=== PATIENT | female | born 1935 | race Caucasian/White ===

== ENCOUNTER 2022-01-05 12:18 | Inpatient (IN) | payer MEDICARE ==
[~2022-01-05] VITALS: Ht 160 cm; Wt 57.0 kg
[2022-01-05] MEDS ORDERED: traMADol 50MG tablet PO ONE (15:10)
[2022-01-05 16:38] LABS: BASOPHILS % (AUTO) 0.4 % (0-1); EOSINOPHILS # (AUTO) 0.2 X10'3 (0-0.9); EOSINOPHILS % (AUTO) 2.3 % (0-6); HEMATOCRIT 40.6 % (35.0-45.0); HEMOGLOBIN 13.8 g/dl (12.0-16.0); LYMPHOCYTES # (AUTO) 1.2 X10'3 (1.1-4.8); LYMPHOCYTES % (AUTO) 14.2 % (21-51); MEAN PLATELET VOLUME 8.3 FL (7.4-10.4); MONOCYTES # (AUTO) 0.9 X10'3 (0-0.9); MONOCYTES % (AUTO) 10.6 % (2-12); NEUTROPHILS # (AUTO) 6.2 X10'3 (1.8-7.7); NEUTROPHILS % (AUTO) 72.5 % (42-75); PLATELET COUNT 180 X10'3 (140-440); RED BLOOD COUNT 4.32 X10'6 (4.20-5.60); RED CELL DISTRIBUTION WIDTH 13.5 % (11.5-14.5); WHITE BLOOD COUNT 8.6 X10'3 (4.5-11.0)
[2022-01-05 16:56] LABS: ALANINE AMINOTRANSFERASE 34 U/L (12-78); ALBUMIN 3.5 G/DL (3.4-5.0); ALKALINE PHOSPHATASE 53 IU/L (46-116); ANION GAP 5 (8-16); ASPARTATE AMINO TRANSFERASE 45 U/L (10-37); BILIRUBIN,TOTAL 0.6 MG/DL (0.1-1.0); BLOOD UREA NITROGEN 25 MG/DL (7-18); CHLORIDE 94 MMOL/L (99-107); GLUCOSE 106 MG/DL (70-104); POTASSIUM 3.5 MMOL/L (3.5-5.1); SODIUM 134 MMOL/L (135-145); TOTAL CARBON DIOXIDE 34.9 MMOL/L (24-32); eGFR 52 ML/MIN
[2022-01-05] MEDS ORDERED: magnesium 4gm in 100ml NS 100 ML IV PRN (17:20)
[2022-01-05] MEDS ORDERED: metoclopramide 5 mg/ml inj IV PRN (17:20)
[2022-01-05] MEDS ORDERED: PERFLUTREN PROTEIN-A MICROSPHR (Optison) 0.22 MG/ML 3ML VIAL IV ONE (17:20)
[2022-01-05] MEDS: normal saline 1000ml 1,000 ML IV SCH (17:20)
[2022-01-05] MEDS ORDERED: ondansetron 4mg rapidly disintigrating tab PO PRN (17:20)
[2022-01-05] MEDS ORDERED: HYDROcodone/acetaminophen 5mg/325mg tablet PO PRN (17:20)
[2022-01-05] MEDS ORDERED: acetaminophen 325mg tablet PO PRN ×2 (17:20)
[2022-01-05] MEDS ORDERED: mag hydrox/Alum hydrox/simeth 30ml oral suspension PO PRN (17:20)
[2022-01-05] MEDS ORDERED: HYDROcodone/acetaminophen 10/325mg tab PO PRN (17:20)
[2022-01-05] MEDS ORDERED: morphine 2 MG/ML inj. syringe IV PRN ×2 (17:20)
[2022-01-05] MEDS ORDERED: ondansetron/PF 4mg/2ml inj IV PRN (17:20)
[2022-01-05] MEDS ORDERED: acetaminophen 650mg rectal suppository RC PRN (17:20)
[2022-01-05] MEDS ORDERED: magnesium 2GM in 50ml NS 50 ML IV PRN (17:20)
[2022-01-05] MEDS ORDERED: potassium CL 10mEq/100ml bag 100 ML IV PRN (17:20)
[2022-01-05] MEDS ORDERED: bisacodyl 10mg suppository rectal RC PRN (17:20)
[2022-01-05] MEDS ORDERED: POTASSIUM BICARB 20meq eff tab 20 MEQ TABLET.EFF PO PRN (17:20)
[2022-01-05] MEDS ORDERED: magnesium Cl slow-release 64mg tablet PO PRN (17:20)
[2022-01-05] MEDS ORDERED: magnesium hydroxide 30ml (MOM) UD suspension PO PRN (17:20)
[2022-01-05 17:30] LABS: MAGNESIUM 2.1 MG/DL (1.5-2.4)
[2022-01-05] MEDS ORDERED: TRAM50TA2 PO (18:44)
[2022-01-05] MEDS ORDERED: ALBU90AE2 IH (18:44)
--- NOTE | 2022-01-05 18:52 | NUR ---
ASSUMED CARE OF PT. NO QUESTIONS OR COMPLAINTS FROM PT AT THIS TIME.
--- NOTE | 2022-01-05 19:20 | NUR ---
PAGE SENT OUT TO DR LYNN REQUESTING A SIERRA FOR PT.
[2022-01-05] MEDS: K and/or MAG REPLACEMENT MC SCH (19:52)
[2022-01-05] MEDS: docusate sod 100mg capsule PO SCH (19:59)
[2022-01-05] MEDS ORDERED: LISI1TAB53 PO (20:52)
[2022-01-05] MEDS ORDERED: CITA20TA28 PO (20:52)
[2022-01-05] MEDS ORDERED: MULT-1085 PO (20:53)
[2022-01-05] MEDS ORDERED: temazepam 15mg capsule PO PRN (21:00)
[2022-01-06] VITALS (20 sets, daily range): BP systolic 84–133; BP diastolic 42–71
--- NOTE | 2022-01-06 00:17 | NUR ---
SPOKE TO DR LYNN CONCERNING PT'S BLOOD PRESSURES. HE IS NOT CONCERNED ABOUT LOW BP BUT RECOMMENDS MONITORING CLOSELY AND CONTACTING HIM IF PT'S MAP IS BELOW 60.
[2022-01-06 01:23] LABS: BASOPHILS % (AUTO) 0.5 % (0-1); EOSINOPHILS # (AUTO) 0.3 X10'3 (0-0.9); EOSINOPHILS % (AUTO) 4.1 % (0-6); HEMATOCRIT 37.6 % (35.0-45.0); HEMOGLOBIN 12.6 g/dl (12.0-16.0); LYMPHOCYTES # (AUTO) 1.4 X10'3 (1.1-4.8); LYMPHOCYTES % (AUTO) 16.9 % (21-51); MEAN CORPUSCULAR HEMOGLOBIN 31.5 PG (27.0-31.0); MEAN CORPUSCULAR HGB CONC 33.6 g/dL (33.0-36.5); MEAN CORPUSCULAR VOLUME 93.7 FL (78-98); MEAN PLATELET VOLUME 8.5 FL (7.4-10.4); MONOCYTES # (AUTO) 1.1 X10'3 (0-0.9); MONOCYTES % (AUTO) 13.4 % (2-12); NEUTROPHILS # (AUTO) 5.4 X10'3 (1.8-7.7); NEUTROPHILS % (AUTO) 65.1 % (42-75); PLATELET COUNT 166 X10'3 (140-440); RED BLOOD COUNT 4.01 X10'6 (4.20-5.60); RED CELL DISTRIBUTION WIDTH 13.1 % (11.5-14.5); WHITE BLOOD COUNT 8.4 X10'3 (4.5-11.0)
[2022-01-06 01:40] LABS: ALANINE AMINOTRANSFERASE 29 U/L (12-78); ALBUMIN 3.1 G/DL (3.4-5.0); ALKALINE PHOSPHATASE 52 IU/L (46-116); ANION GAP 4 (8-16); ASPARTATE AMINO TRANSFERASE 39 U/L (10-37); BILIRUBIN,TOTAL 0.5 MG/DL (0.1-1.0); BLOOD UREA NITROGEN 28 MG/DL (7-18); BUN/CREATININE RATIO 26.2 (6.6-38.0); CALCIUM 8.5 MG/DL (8.5-10.1); CHLORIDE 96 MMOL/L (99-107); CREATININE 1.07 MG/DL (0.40-0.90); GLUCOSE 108 MG/DL (70-104); POTASSIUM 3.6 MMOL/L (3.5-5.1); SODIUM 134 MMOL/L (135-145); TOTAL CARBON DIOXIDE 34.5 MMOL/L (24-32); TOTAL PROTEIN 6.3 G/DL (6.4-8.2); eGFR 49 ML/MIN
--- NOTE | 2022-01-06 06:30 | NUR ---
patient asleep, supine.
[2022-01-06] MEDS: K and/or MAG REPLACEMENT MC SCH ×2 (08:00→20:00)
[2022-01-06] MEDS: docusate sod 100mg capsule PO SCH ×2 (08:00→20:00)
--- NOTE | 2022-01-06 09:42 | NUR ---
Patient in room ED 2. I have received report from Haris PEDROZA and had the opportunity to ask questions and assume patient care.
[2022-01-06] MEDS: ipratropium/albuterol 3ml nebule NEB PRN (11:38)
[2022-01-06] MEDS ORDERED: famotidine/PF 10 mg/ml inj IV ONE (11:45)
--- NOTE | 2022-01-06 12:29 | NUR ---
pre op checklist initiated on patient. patient is for surgery of right fractured hip with Dr Schwarz at 1500hrs. visitor at bedside. patient medicated x1 for pain. will continue to monitor
[2022-01-06 12:48] LABS: PRE OP PARTIAL THROMB. TIME 26 SECONDS (22-32)
[2022-01-06] MEDS ORDERED: ondansetron/PF 4mg/2ml inj IV PRN (12:50)
[2022-01-06] MEDS ORDERED: ringers solution, lacted 1,000 ML IV SCH (12:50)
[2022-01-06] MEDS ORDERED: labetalol 20mg/4ml (5mg/ml) syringe IV PRN (12:50)
[2022-01-06] MEDS ORDERED: hydrALAZINE 20mg/ml inj. IV PRN (12:50)
[2022-01-06] MEDS ORDERED: morphine 4 MG/ML inj SYRINge IV PRN (12:50)
[2022-01-06] MEDS ORDERED: morphine 2 MG/ML inj. syringe IV PRN (12:50)
[2022-01-06] MEDS ORDERED: ringers solution, lacted 1,000 ML IV ONE (12:50)
[2022-01-06] MEDS ORDERED: fentaNYL/PF 50MCG/1 ML 2ML syringe IV PRN ×2 (12:50)
[2022-01-06] MEDS ORDERED: HYDROmorphone inj. 0.5 MG/0.5 ML DISP.SYRIN IV PRN (13:25)
[2022-01-06] MEDS: HYDROmorphone 1 mg/ml syringe IV PRN ×2 (13:38→20:36)
[2022-01-06] MEDS: normal saline 1000ml 1,000 ML IV SCH ×2 (14:18→17:48)
--- NOTE | 2022-01-06 14:56 | NUR ---
pain relief changed per Dr antonio as morphine ineffective. Dilaudid administered with good effect. patient was able to sleep. All pre op check list completed. patient was taken to surgery 1435hrs.
[2022-01-06] MEDS ORDERED: PHENYLephrine 10mg/ml 5ml injection IV ONE (15:07)
[2022-01-06] MEDS ORDERED: MIDAZolam 1 MG/ML 5ML VIAL ONE (15:11)
[2022-01-06] MEDS ORDERED: fentaNYL/PF 50MCG/1 ML 2ML syringe ONE (15:11)
[2022-01-06] MEDS ORDERED: ceFAZolin 1000mg inj ONE ×2 (15:34)
--- NOTE | 2022-01-06 15:58 | NUR ---
Received from [facility], accompanied by Anesthesiologist DR HOLT and report given by Anesthesiolgist. PT PRESENTS WITH PIV 20G RIGHT HAND, BAND AID ON RIGHT HIP, VSS. Addendum: 01/06/22 at 1631 by Ewa Merino RN, RN Amended: Links added.
--- NOTE | 2022-01-06 17:17 | NUR ---
Patient in room ORTHO 4020. I have received report from Ewa PEDROZA and had the opportunity to ask questions and awaiting patients arrival
--- NOTE | 2022-01-06 17:28 | NUR ---
Report called to receiving nurse JEISON PEDROZA. Transferred via HOSPITAL BED BACK TO ROOM 4020. PT Belongings WERE LEFT IN PT ROOM 4020. BED IN LOW LOCKED POSITION WITH CALL LIGHT IN REACH. JEISON PEDROZA AT BEDSIDE. Special Issues communicated to receiving nurse. Addendum: 01/06/22 at 1749 by Ewa Merino RN RN Amended: Links added.
--- NOTE | 2022-01-06 18:50 | NUR ---
patient arrived back from surgery in stable condition. band aide to right hip CDI. Daughters at bedside. initiated post op vitals which are stable. Report given to Alyse PEDROZA
[2022-01-07] MEDS: cefazolin/dext.iso 2gm/100ml 100 ML IV SCH ×2 (00:56→07:55)
[2022-01-07 02:00] VITALS: BP 125/71
[2022-01-07] MEDS: HYDROmorphone 1 mg/ml syringe IV PRN (04:36)
[2022-01-07 06:00] VITALS: BP 122/67
--- NOTE | 2022-01-07 06:05 | NUR ---
received report from dillon, rn
[2022-01-07 06:31] LABS: BASOPHILS % (AUTO) 0.4 % (0-1); EOSINOPHILS # (AUTO) 0.3 X10'3 (0-0.9); EOSINOPHILS % (AUTO) 4.2 % (0-6); HEMATOCRIT 34.6 % (35.0-45.0); HEMOGLOBIN 11.7 g/dl (12.0-16.0); LYMPHOCYTES % (AUTO) 13.8 % (21-51); MEAN CORPUSCULAR HEMOGLOBIN 31.6 PG (27.0-31.0); MEAN CORPUSCULAR HGB CONC 33.8 g/dL (33.0-36.5); MEAN CORPUSCULAR VOLUME 93.5 FL (78-98); MEAN PLATELET VOLUME 8.3 FL (7.4-10.4); MONOCYTES # (AUTO) 1.1 X10'3 (0-0.9); MONOCYTES % (AUTO) 14.8 % (2-12); NEUTROPHILS % (AUTO) 66.8 % (42-75); PLATELET COUNT 158 X10'3 (140-440); RED CELL DISTRIBUTION WIDTH 12.8 % (11.5-14.5); WHITE BLOOD COUNT 7.5 X10'3 (4.5-11.0)
[2022-01-07 06:48] LABS: ALANINE AMINOTRANSFERASE 24 U/L (12-78); ALBUMIN 2.5 G/DL (3.4-5.0); ALBUMIN/GLOBULIN RATIO 0.8 (1.1-1.5); ALKALINE PHOSPHATASE 47 IU/L (46-116); ANION GAP 5 (8-16); ASPARTATE AMINO TRANSFERASE 29 U/L (10-37); BILIRUBIN,TOTAL 0.5 MG/DL (0.1-1.0); BLOOD UREA NITROGEN 12 MG/DL (7-18); BUN/CREATININE RATIO 21.4 (6.6-38.0); CALCIUM 7.7 MG/DL (8.5-10.1); CHLORIDE 102 MMOL/L (99-107); CREATININE 0.56 MG/DL (0.40-0.90); GLUCOSE 102 MG/DL (70-104); MAGNESIUM 1.6 MG/DL (1.5-2.4); POTASSIUM 3.3 MMOL/L (3.5-5.1); SODIUM 136 MMOL/L (135-145); TOTAL CARBON DIOXIDE 28.8 MMOL/L (24-32); TOTAL PROTEIN 5.6 G/DL (6.4-8.2); eGFR > 90 ML/MIN
[2022-01-07] MEDS: POTASSIUM BICARB 20meq eff tab 20 MEQ TABLET.EFF PO PRN ×3 (07:51→17:47)
[2022-01-07] MEDS: citalopram 20mg tablet PO SCH (07:52)
[2022-01-07] MEDS: HYDROchlorothiazide 25mg tablet PO SCH (07:53)
[2022-01-07] MEDS: lisinopril 20mg tablet PO SCH (07:53)
[2022-01-07] MEDS: docusate sod 100mg capsule PO SCH ×2 (07:54→20:00)
[2022-01-07] MEDS: multivitamins, therapeutics tablet PO SCH (07:54)
[2022-01-07] MEDS: K and/or MAG REPLACEMENT MC SCH ×2 (08:00→20:00)
[2022-01-07 10:00] VITALS: BP 117/45
[2022-01-07] MEDS: traMADol 50MG tablet PO PRN (12:03)
[2022-01-07 18:00] VITALS: BP 157/63
--- NOTE | 2022-01-07 18:08 | NUR ---
TELE CALLED TO TELL ME THAT PT IS IN STV W/HEART RATE IN 180, CALLED ME BACK AFTER PAGE, AND PT HR AFTER PAGE IS 114 AND HER BP IS 136/77, PT IS ASYMPTOMATIC, NO NEW ORDERS, CONTINUE TO MONITOR PT
--- NOTE | 2022-01-07 18:19 | NUR ---
GAVE REPORT TO YOVANY RODRIGEZ
[2022-01-07] MEDS: ipratropium/albuterol 3ml nebule NEB PRN (19:50)
[2022-01-07] MEDS: normal saline 1000ml 1,000 ML IV SCH (20:13)
[2022-01-07 22:00] VITALS: BP 103/62
[2022-01-08 06:00] VITALS: BP 103/70
[2022-01-08] MEDS: normal saline 1000ml 1,000 ML IV SCH ×2 (07:07→23:33)
[2022-01-08 07:45] LABS: BASOPHILS % (AUTO) 0.3 % (0-1); EOSINOPHILS # (AUTO) 0.2 X10'3 (0-0.9); EOSINOPHILS % (AUTO) 2.6 % (0-6); HEMATOCRIT 35.5 % (35.0-45.0); HEMOGLOBIN 11.8 g/dl (12.0-16.0); LYMPHOCYTES % (AUTO) 12.3 % (21-51); MEAN CORPUSCULAR HEMOGLOBIN 30.9 PG (27.0-31.0); MEAN CORPUSCULAR HGB CONC 33.1 g/dL (33.0-36.5); MEAN CORPUSCULAR VOLUME 93.5 FL (78-98); MEAN PLATELET VOLUME 8.7 FL (7.4-10.4); MONOCYTES # (AUTO) 1.3 X10'3 (0-0.9); MONOCYTES % (AUTO) 16.2 % (2-12); NEUTROPHILS # (AUTO) 5.4 X10'3 (1.8-7.7); NEUTROPHILS % (AUTO) 68.6 % (42-75); PLATELET COUNT 177 X10'3 (140-440); RED CELL DISTRIBUTION WIDTH 12.7 % (11.5-14.5); WHITE BLOOD COUNT 7.8 X10'3 (4.5-11.0)
[2022-01-08 07:55] LABS: ALANINE AMINOTRANSFERASE 31 U/L (12-78); ALBUMIN 2.7 G/DL (3.4-5.0); ALBUMIN/GLOBULIN RATIO 0.8 (1.1-1.5); ALKALINE PHOSPHATASE 78 IU/L (46-116); ANION GAP 5 (8-16); ASPARTATE AMINO TRANSFERASE 45 U/L (10-37); BILIRUBIN,TOTAL 0.8 MG/DL (0.1-1.0); BLOOD UREA NITROGEN 8 MG/DL (7-18); BUN/CREATININE RATIO 15.7 (6.6-38.0); CALCIUM 7.8 MG/DL (8.5-10.1); CHLORIDE 101 MMOL/L (99-107); CREATININE 0.51 MG/DL (0.40-0.90); GLUCOSE 112 MG/DL (70-104); MAGNESIUM 1.6 MG/DL (1.5-2.4); POTASSIUM 3.7 MMOL/L (3.5-5.1); SODIUM 134 MMOL/L (135-145); TOTAL CARBON DIOXIDE 28.5 MMOL/L (24-32); TOTAL PROTEIN 6.2 G/DL (6.4-8.2); eGFR > 90 ML/MIN
[2022-01-08] MEDS: K and/or MAG REPLACEMENT MC SCH ×2 (08:00→20:00)
[2022-01-08 08:20] LABS: PLATELET ESTIMATE NORMAL; TOTAL CELLS COUNTED 100
[2022-01-08] MEDS: citalopram 20mg tablet PO SCH (08:46)
[2022-01-08] MEDS: multivitamins, therapeutics tablet PO SCH (08:46)
[2022-01-08] MEDS: HYDROchlorothiazide 25mg tablet PO SCH (08:47)
[2022-01-08] MEDS: docusate sod 100mg capsule PO SCH ×2 (08:47→20:00)
[2022-01-08] MEDS: lisinopril 20mg tablet PO SCH (08:48)
[2022-01-08] MEDS: metoprolol tartrate 12.5mg (1/2 tablet) PO SCH ×2 (09:56→21:13)
[2022-01-08] MEDS: traMADol 50MG tablet PO PRN (09:56)
[2022-01-08 10:00] VITALS: BP 123/70
[2022-01-08] MEDS ORDERED: predniSONE 20 mg tablet PO ONE (11:15)
[2022-01-08] MEDS: cetirizine 10mg tablet PO SCH (11:15)
[2022-01-08] MEDS ORDERED: guaiFENesin/DM 10ml UD oral syrup PO PRN (11:15)
[2022-01-08 14:00] VITALS: BP 107/60
[2022-01-08] MEDS: ipratropium/albuterol 3ml nebule NEB SCH ×3 (15:49→23:00)
[2022-01-08] MEDS ORDERED: aspirin 325mg tablet PO ONE (17:00)
[2022-01-08 18:00] VITALS: BP 103/85
--- NOTE | 2022-01-08 19:07 | NUR ---
Patient in room ORTHO 4020. I have received report from YOVANY Mills and had the opportunity to ask questions and assume patient care. Patietn sitting up in bed, in no apparent distress
[2022-01-08] MEDS ORDERED: diphenhydrAMINE 25mg capsule PO SCH (21:00)
[2022-01-08 22:00] VITALS: BP 101/50
[2022-01-09 06:00] VITALS: BP 123/63
--- NOTE | 2022-01-09 06:05 | NUR ---
Problems reprioritized. Patient report given, questions answered & plan of care reviewed with YOVANY Mills.
[2022-01-09 06:24] LABS: BASOPHILS % (AUTO) 0.1 % (0-1); EOSINOPHILS % (AUTO) 0.1 % (0-6); HEMATOCRIT 33.9 % (35.0-45.0); HEMOGLOBIN 11.3 g/dl (12.0-16.0); LYMPHOCYTES # (AUTO) 0.8 X10'3 (1.1-4.8); LYMPHOCYTES % (AUTO) 11.9 % (21-51); MEAN CORPUSCULAR HEMOGLOBIN 31.4 PG (27.0-31.0); MEAN CORPUSCULAR HGB CONC 33.4 g/dL (33.0-36.5); MEAN CORPUSCULAR VOLUME 94.1 FL (78-98); MEAN PLATELET VOLUME 8.5 FL (7.4-10.4); MONOCYTES # (AUTO) 0.9 X10'3 (0-0.9); MONOCYTES % (AUTO) 13.4 % (2-12); NEUTROPHILS # (AUTO) 5.2 X10'3 (1.8-7.7); NEUTROPHILS % (AUTO) 74.5 % (42-75); PLATELET COUNT 184 X10'3 (140-440); RED CELL DISTRIBUTION WIDTH 13.1 % (11.5-14.5); WHITE BLOOD COUNT 6.9 X10'3 (4.5-11.0)
[2022-01-09 06:49] LABS: ALANINE AMINOTRANSFERASE 27 U/L (12-78); ALBUMIN 2.6 G/DL (3.4-5.0); ALBUMIN/GLOBULIN RATIO 0.8 (1.1-1.5); ALKALINE PHOSPHATASE 71 IU/L (46-116); ANION GAP 5 (8-16); ASPARTATE AMINO TRANSFERASE 26 U/L (10-37); BILIRUBIN,TOTAL 0.4 MG/DL (0.1-1.0); BLOOD UREA NITROGEN 15 MG/DL (7-18); BUN/CREATININE RATIO 20.3 (6.6-38.0); CALCIUM 7.6 MG/DL (8.5-10.1); CHLORIDE 102 MMOL/L (99-107); CREATININE 0.74 MG/DL (0.40-0.90); GLUCOSE 114 MG/DL (70-104); MAGNESIUM 1.9 MG/DL (1.5-2.4); POTASSIUM 3.8 MMOL/L (3.5-5.1); SODIUM 135 MMOL/L (135-145); TOTAL CARBON DIOXIDE 27.6 MMOL/L (24-32); eGFR 74 ML/MIN
[2022-01-09] MEDS: ipratropium/albuterol 3ml nebule NEB SCH ×2 (07:49→11:34)
[2022-01-09] MEDS: K and/or MAG REPLACEMENT MC SCH (08:00)
[2022-01-09] MEDS ORDERED: predniSONE 20 mg tablet PO SCH (08:00)
[2022-01-09] MEDS: multivitamins, therapeutics tablet PO SCH (08:05)
[2022-01-09] MEDS: cetirizine 10mg tablet PO SCH (08:05)
[2022-01-09] MEDS: docusate sod 100mg capsule PO SCH (08:06)
[2022-01-09] MEDS: citalopram 20mg tablet PO SCH (08:06)
[2022-01-09] MEDS: metoprolol tartrate 12.5mg (1/2 tablet) PO SCH (08:06)
[2022-01-09] MEDS ORDERED: aspirin 325mg tablet PO SCH (08:30)
[2022-01-09 10:00] VITALS: BP 159/57
--- NOTE | 2022-01-09 12:40 | NUR ---
Optical Glass Inspector called and said pt HR 140s. Entered pt room and pt just finished eating lunch and denied any discomfort. Pt awake and alert, resting comfortably. BP 126/[address] Pittman notified.
[2022-01-09] MEDS: traMADol 50MG tablet PO PRN (12:43)
[2022-01-09] MEDS ORDERED: metoprolol tartrate 12.5mg (1/2 tablet) PO ONE (13:05)
[2022-01-09 14:00] VITALS: BP 130/70
--- NOTE | 2022-01-09 15:00 | NUR ---
Notified CM as pt had a 1330 pickup time for [facility] and that no ride is here to pick pt up. CM said that she will notify [facility] for clarification on time.
== END 2022-01-09 15:25 | DRG 480 ==
LOC: ER 12:19 → ED HOLD 17:21 → ORTHO 4S 01-06 07:55
PROVIDERS: ADMIT Family Medicine; ATTEND Family Medicine
PROC: 0QH634Z Insertion of Internal Fixation Device into Right Upper Femur, Percutaneous Approach (ICD-10-PCS; principal; 2022-01-06 15:07)
DX: S72.001A Fracture of unspecified part of neck of right femur, initial encounter for closed fracture (principal); N17.0 Acute kidney failure with tubular necrosis; E87.1 Hypo-osmolality and hyponatremia; J44.1 Chronic obstructive pulmonary disease with (acute) exacerbation; F32.A Depression, unspecified; F17.210 Nicotine dependence, cigarettes, uncomplicated; Z20.822 Contact with and (suspected) exposure to COVID-19; Z66 Do not resuscitate; R00.0 Tachycardia, unspecified; J30.2 Other seasonal allergic rhinitis; W18.39XA Other fall on same level, initial encounter; Y93.89 Activity, other specified; Y92.89 Other specified places as the place of occurrence of the external cause; Y99.8 Other external cause status; I12.9 Hypertensive chronic kidney disease with stage 1 through stage 4 chronic kidney disease, or unspecified chronic kidney disease; N18.9 Chronic kidney disease, unspecified
CPT/HCPCS: 36415; 71045; 73502; 73560; 73700; 76000; 80053; 82948; 83735; 85007; 85025; 85610; 85730; 87081; 87635; 93005; 93308; 94640; 94760; 96360; 97116; 97161; 97530; 99285; A4618; A7000; C1713; G0378; J0690; J1170; J2250; J2270; J2370; J2405; J3010; J3490; J7030; J7120; J7512; Q0163